=== PATIENT | male | born 1950 | race African-American/Black ===

== ENCOUNTER 2016-09-14 06:31 | Emergency (ER) | payer BC ==
[~2016-09-14] VITALS: Ht 160 cm; Wt 81.7 kg
--- NOTE | ~2016-09-14 | EKG ---
[place] [address] [facility] [place] [address] ELECTROCARDIOGRAM REPORT Name: STARR MARTINI [facility] [id number] Admission: 09/14/16 Attend Phys: Discharge: 09/14/16 Date of : 54 Report #: [id number] THIS REPORT FOR: //name// [facility] ED Test Date: 2016-09-14 Test Time: 07:09:01 Pat Name: STARR MARTINI Department: Room: Gender: Grey Percher: : 1950 Requested By: Ruth Davis Order Number: [id number] MD: Raghav Hoffman Measurements Intervals [place] Rate: 65 P: -9 MT: 176 QRS: -20 QRSD: 78 T: -1 QT: 412 QTc: 429 Interpretive Statements Sinus rhythm Left ventricular hypertrophy Cannot rule out Inferior infarct, old No previous ECG available for comparison Electronically Signed On 09-14-2016 9:06:09 CDT by Raghav Hoffman [email or web address] <ELECTRONICALLY SIGNED> By: Raghav Hoffman MD, [facility] 09/14/16 [id number] Raghav Hoffman MD, FACC /EPI
[2016-09-14] MEDS ORDERED: LISINOPRIL20 MG PO (06:43)
[2016-09-14] MEDS ORDERED: COZAAR 50 MG TA50 M2 PO (06:43)
[2016-09-14] MEDS ORDERED: FLOMAX0.4 MG PO (06:44)
[2016-09-14] MEDS ORDERED: KLOR-CON M2020 MEQ PO (06:44)
[2016-09-14] MEDS ORDERED: ASPIR 8181 M1 PO (06:45)
[2016-09-14] MEDS ORDERED: HYDROCHLOROTHIA25 M2 PO (06:45)
[2016-09-14 07:39] LABS: ABSOLUTE NEUTROPHILS 4.7 thou/uL (1.4-8.2); BASOPHILS 0.7 % (0.0-2.0); EOSINOPHILS 3.1 % (0.0-3.0); HEMATOCRIT 40.5 % (42.0-52.0); LYMPHOCYTES 17.4 % (24.0-44.0); MCH 31.4 pg (26.0-34.0); MCHC 34.6 g/dL (28.0-37.0); MCV 90.8 fL (80.0-100.0); MONOCYTES 11.1 % (1.0-8.0); PLATELET COUNT 220 thou/uL (150-400); POLYS 67.7 % (36.0-66.0); RBC 4.46 mil/uL (4.50-6.00); RDW 13.6 % (10.5-14.5)
[2016-09-14 07:40] LABS: MANUAL DIFF NO
[2016-09-14 07:48] LABS: ANION GAP 8 mmol/L (7-16); BUN 17 mg/dL (7-18); CALCIUM 8.8 mg/dL (8.5-10.1); CHLORIDE 108 mmol/L (98-107); CO2 27 mmol/L (21-32); GLUCOSE 105 mg/dL (74-106); POTASSIUM 4.4 mmol/L (3.5-5.1); SODIUM 143 mmol/L (136-145)
[2016-09-14 07:55] LABS: TROPONIN-I < 0.04 ng/mL (<0.04-0.07)
[2016-09-14 08:32] VITALS: BP 198/109
== END 2016-09-14 08:32 | disposition home or self-care (01) ==
LOC: ER 06:31
PROVIDERS: Emergency Medicine
DX: R60.0 Localized edema (principal); R07.89 Other chest pain; I10 Essential (primary) hypertension; F10.99 Alcohol use, unspecified with unspecified alcohol-induced disorder

== ENCOUNTER → 2020-07-28 | Outpatient (CLI) | payer OTHER ==
[~2020-07-28] MED LIST: ASPIR 8181 M1 PO; COZAAR 50 MG TA50 M2 PO; FLOMAX0.4 MG PO; HYDROCHLOROTHIA25 M2 PO; KLOR-CON M2020 MEQ PO; LISINOPRIL20 MG PO
== END ==
LOC: SJCVCIMAG 09:49 → SJCVC 09:49
PROVIDERS: ATTEND Internal Medicine
DX: I10 Essential (primary) hypertension (principal); N28.1 Cyst of kidney, acquired; R94.31 Abnormal electrocardiogram [ECG] [EKG]; K45.8 Other specified abdominal hernia without obstruction or gangrene; Z79.82 Long term (current) use of aspirin; Z79.899 Other long term (current) drug therapy

== ENCOUNTER → 2020-08-01 | Outpatient (CLI) | payer OTHER | LOC: SJCVCIMAG 08:55 | PROVIDERS: ATTEND Internal Medicine | DX: I07.1 Rheumatic tricuspid insufficiency (principal); I11.9 Hypertensive heart disease without heart failure; F41.9 Anxiety disorder, unspecified; Z72.89 Other problems related to lifestyle; Z79.82 Long term (current) use of aspirin; Z79.899 Other long term (current) drug therapy ==

== ENCOUNTER → 2020-08-29 | Outpatient (CLI) | payer OTHER | LOC: SJCVC 09:01 | PROVIDERS: ATTEND Internal Medicine | DX: I10 Essential (primary) hypertension (principal); Z79.82 Long term (current) use of aspirin; Z79.899 Other long term (current) drug therapy; Z72.89 Other problems related to lifestyle ==

== ENCOUNTER → 2020-10-24 | Outpatient (CLI) | payer OTHER | LOC: SJCVC 09:12 | PROVIDERS: ATTEND Internal Medicine | DX: I10 Essential (primary) hypertension (principal); F41.9 Anxiety disorder, unspecified; K46.9 Unspecified abdominal hernia without obstruction or gangrene; Z79.82 Long term (current) use of aspirin; Z79.899 Other long term (current) drug therapy; Z72.89 Other problems related to lifestyle ==

== ENCOUNTER → 2020-11-21 | Outpatient (CLI) | payer OTHER | LOC: SJCVC 09:03 | PROVIDERS: ATTEND Internal Medicine | DX: I10 Essential (primary) hypertension (principal); F41.9 Anxiety disorder, unspecified; Z72.89 Other problems related to lifestyle; Z79.82 Long term (current) use of aspirin; Z79.899 Other long term (current) drug therapy ==

== ENCOUNTER → 2021-02-13 | Outpatient (CLI) | payer OTHER | LOC: SJCVC 08:46 | PROVIDERS: ATTEND Internal Medicine | DX: I10 Essential (primary) hypertension (principal); F41.9 Anxiety disorder, unspecified; Z72.89 Other problems related to lifestyle; Z79.82 Long term (current) use of aspirin; Z79.899 Other long term (current) drug therapy ==